=== PATIENT | male | born 1940 | race African-American/Black ===

== ENCOUNTER → 2017-05-27 | Day surgery (SDC) | payer OTHER, MEDICARE ==
[2017-05-21 11:26] VITALS: BMI 23.7
[~2017-05-27] MED LIST: LIDOCAINE HCL/PF 2% SDV 5ML VIAL ONE; PROPOFOL 20 ML ONE
[2017-05-27 10:45] VITALS: BP 133/77; PULSE 54; TEMP 98
--- NOTE | 2017-06-01 09:09 | PATH ---
Surgical Pathology Report Patient Name: MERLY BRADFORD [facility]. Rec. #: [id number] /Age/Gender: 1940 (Age: 76) / M Account: [id number] Location: [facility]-ENDOSCOPY Taken: 05/27/2017 Received: 05/27/2017 Reported: 06/01/2017 Physicians: Juan Bey M.D. Specimen(s) Received BX RIGHT COLON Clinical History Fam hx of colon cancer Polyps Final Diagnosis RIGHT COLON, BIOPSY: TUBULAR ADENOMA. Electronically Signed Susan Rees M.D. Gross Description Received in formalin, labeled "right colon" are 3 rose, irregular portions of soft tissue measuring 0.2-0.3 cm. in greatest dimension. The specimens are submitted in toto in one cassette. [facility]/05/28/2017 [facility]/05/28/2017
== END | disposition home or self-care (01) ==
LOC: FASU-ENDO 07:41
PROVIDERS: ATTEND Internal Medicine Gastroenterology
PROC: 0DBK8ZX Excision of Ascending Colon, Via Natural or Artificial Opening Endoscopic, Diagnostic (ICD-10-PCS; principal; 2017-05-27 08:35)
DX: Z86.010 Personal history of colon polyps (principal); Z80.0 Family history of malignant neoplasm of digestive organs; D12.2 Benign neoplasm of ascending colon
CPT/HCPCS: 88305-TC